=== PATIENT | male | born 1950 | race Caucasian/White ===

== ENCOUNTER 2017-03-06 18:13 | Emergency (ER) | payer MEDICARE ==
[~2017-03-06] VITALS: Ht 177.8 cm; Wt 95.4 kg
[2017-03-06] MEDS ORDERED: LISINOPRIL20 MG PO (18:53)
[2017-03-06] MEDS ORDERED: LOPRESSOR 550 MG/TAB PO (18:54)
[2017-03-06] MEDS ORDERED: LEVOTHYROXIN50 MCG PO (18:54)
[2017-03-06] MEDS ORDERED: LORCET HD 10-321 TAB PO (18:55)
[2017-03-06 19:41] LABS: HEMATOCRIT 50.5 % (39.0-50.0); IMMATURE GRANULOCYTES 0.2 % (0.0-1.0); MEAN CELL VOLUME 92.3 fL CALC (80.0-100.0); MEAN CORPUSCULAR HGB 31.1 pG CALC (26.0-32.0); MEAN CORPUSCULAR HGB CONC 33.7 g/L CALC (32.0-36.0); NEUT# 2.8 thou/uL (1.82-7.42); RED BLOOD COUNT 5.47 mill/uL (4.70-6.10); RED CELL DISTRI WIDTH 14.6 % (11.5-15.5)
[2017-03-06 19:58] LABS: ALBUMIN 4.5 g/dL (3.2-5.0); ALKALINE PHOSPHATASE 110 u/l (38-126); ANION GAP 14 (6-22 (CALC)); BILIRUBIN, TOTAL 0.4 mg/dL (0.0-1.4); BUN 25 mg/dL (8-23); BUN/CREATININE RATIO 21 (12-20 (CALC)); CALCIUM 9.2 mg/dL (8.4-10.2); CARBON DIOXIDE 28 mmol/l (22-30); CHLORIDE 104 mmol/l (95-108); CREATININE 1.2 mg/dL (0.7-1.3); GFR 60 ML/MIN (>=60 (CALC)); GFR FOR AFR.AMER. > 60 ML/MIN (>=60 (CALC)); GLUCOSE 139 mg/dL (82-115); POTASSIUM 3.9 mmol/l (3.5-5.1); SGOT/AST 19 u/l (19-48); SGPT/ALT 19 u/l (11-66); SODIUM 142 mmol/l (137-146); TOTAL PROTEIN 6.5 g/dL (6.3-8.2)
[2017-03-06 21:06] VITALS: BP 175/93
== END 2017-03-06 21:43 | disposition home or self-care (01) ==
LOC: ED 18:13
PROVIDERS: Emergency Medicine
DX: R00.2 Palpitations (principal); I10 Essential (primary) hypertension; F17.290 Nicotine dependence, other tobacco product, uncomplicated; F32.9 Major depressive disorder, single episode, unspecified; N40.0 Benign prostatic hyperplasia without lower urinary tract symptoms; Z85.89 Personal history of malignant neoplasm of other organs and systems

== ENCOUNTER 2018-02-15 01:16 | Observation (INO) | payer MEDICARE ==
[2018-02-15] VITALS (15 sets, daily range): BP systolic 101–226; BP diastolic 63–136
[~2018-02-15] VITALS: Ht 177.8 cm; Wt 98.0 kg
[~2018-02-15 01:16] MED LIST: LEVOTHYROXIN50 MCG PO; LISINOPRIL20 MG PO; LOPRESSOR 550 MG/TAB PO; LORCET HD 10-321 TAB PO
[2018-02-15 01:49] LABS: IMMATURE GRANULOCYTES 0.4 % (0.0-5.0); MEAN CELL VOLUME 91.7 fL CALC (80.0-100.0); MEAN CORPUSCULAR HGB 31.2 pG CALC (26.0-32.0); NEUT# 6.35 thou/uL (1.82-7.42); RED BLOOD COUNT 5.45 mill/uL (4.70-6.10); RED CELL DISTRI WIDTH 14.2 % (11.5-15.5)
[2018-02-15] MEDS ORDERED: NORVASC PO (01:49)
[2018-02-15] MEDS ORDERED: LOSARTAN POT50 MG PO (01:50)
[2018-02-15] MEDS ORDERED: XANAX0.25 MG PO (01:50)
[2018-02-15] MEDS ORDERED: BUDEPRION150 MG PO (01:51)
[2018-02-15] MEDS ORDERED: CLONAZEPAM1 MG PO (01:51)
[2018-02-15 01:59] LABS: ALBUMIN 4.4 g/dL (3.2-5.0); ALKALINE PHOSPHATASE 121 u/l (38-126); ANION GAP 13 (6-22 (CALC)); BILIRUBIN, TOTAL 0.4 mg/dL (0.0-1.4); BUN 30 mg/dL (8-23); BUN/CREATININE RATIO 28 (12-20 (CALC)); CARBON DIOXIDE 26 mmol/l (22-30); CHLORIDE 108 mmol/l (95-108); CREATININE 1.1 mg/dL (0.7-1.3); GFR > 60 ML/MIN (>=60 (CALC)); GFR FOR AFR.AMER. > 60 ML/MIN (>=60 (CALC)); POTASSIUM 4.3 mmol/l (3.5-5.1); SGOT/AST 24 u/l (19-48); SODIUM 142 mmol/l (137-146); TOTAL PROTEIN 7.2 g/dL (6.3-8.2)
[2018-02-15 02:10] LABS: MYOGLOBIN 52 ng/mL (0 - 121)
[2018-02-15 05:17] LABS: URINE BILIRUBIN - DIPSTICK NEGATIVE (NEGATIVE); URINE BLOOD DIPSTICK NEGATIVE (NEGATIVE); URINE COLOR YELLOW; URINE GLUCOSE - DIPSTICK 250 mg/dL (NEGATIVE); URINE KETONE NEGATIVE (NEGATIVE); URINE LEUK ESTERASE NEGATIVE (NEGATIVE); URINE NITRITE - DIPSTICK NEGATIVE (Negative); URINE PH 6.5 (4.5-8.0); URINE PROTEIN - DIPSTICK NEGATIVE (NEG-TRACE); URINE SPECIFIC GRAVITY 1.015; URINE UROBILINOGEN - DIPSTICK 0.2 E.U./dL (0.2)
[2018-02-15 05:29] LABS: URINE CLARITY CLEAR
== END 2018-02-15 22:45 | disposition short-term general hospital (02) ==
LOC: ED 01:16 → ED-I 02:00 → ED 03:26 → ICU 03:27
PROVIDERS: Emergency Medicine; ADMIT Internal Medicine; ATTEND Internal Medicine
DX: I20.9 Angina pectoris, unspecified (principal); I10 Essential (primary) hypertension; J44.9 Chronic obstructive pulmonary disease, unspecified; E03.9 Hypothyroidism, unspecified; E78.5 Hyperlipidemia, unspecified; F41.1 Generalized anxiety disorder; F32.9 Major depressive disorder, single episode, unspecified; G62.9 Polyneuropathy, unspecified; F17.210 Nicotine dependence, cigarettes, uncomplicated; R94.31 Abnormal electrocardiogram [ECG] [EKG]; Z85.89 Personal history of malignant neoplasm of other organs and systems; Z92.3 Personal history of irradiation

== ENCOUNTER → 2018-05-18 | Outpatient (REF) | payer MEDICARE ==
[~2018-05-18] MED LIST changes: +BUDEPRION150 MG PO; +CLONAZEPAM1 MG PO; +LOSARTAN POT50 MG PO; +NORVASC PO; +XANAX0.25 MG PO
[2018-05-18 10:20] LABS: CREATININE 1.5 mg/dL (0.7-1.3); POTASSIUM 4.4 mmol/l (3.5-5.1)
== END | disposition home or self-care (01) ==
LOC: LAB 08:41
PROVIDERS: ATTEND Nurse Practitioner
DX: R94.4 Abnormal results of kidney function studies (principal)

== ENCOUNTER 2019-04-16 16:59 | Observation (INO) | payer MEDICARE ==
[~2019-04-16] VITALS: Ht 172.7 cm; Wt 94.2 kg
--- NOTE | 2019-04-16 17:17 | NUR ---
PT SENT BACK TO WAITING ROOM, ADVISED OF BUSY ER STATUS, INFORMED PT TO NOTIFY STAFF OF ANY SYMPTOM CHANGES. CHARGE NURSE NOTIFIED.
--- NOTE | 2019-04-16 19:40 | NUR ---
PATIENT AMBULATORY TO ROOM 12. UNDRESSED INTO A GOWN. PLACED ON MONITOR. AWAITING MD PENNY.
--- NOTE | 2019-04-16 20:00 | NUR ---
RESTING COMFORTABLY DISCUSSED TREATMENT PLAN
[2019-04-16 20:28] LABS: HEMATOCRIT 53.7 % (39.0-50.0); IMMATURE GRANULOCYTES 0.3 % (0.0-5.0); MEAN CELL VOLUME 89.9 fL CALC (80.0-100.0); MEAN CORPUSCULAR HGB 30.2 pG CALC (26.0-32.0); MEAN CORPUSCULAR HGB CONC 33.5 g/L CALC (32.0-36.0); NEUT# 4.24 thou/uL (1.82-7.42); RED BLOOD COUNT 5.97 mill/uL (4.70-6.10); RED CELL DISTRI WIDTH 15.5 % (11.5-15.5)
[2019-04-16 20:47] LABS: ACT PARTIAL THROMBO TIME 29.6 SECONDS (20.0-32.5); INTERNATIONAL NORMALIZED RATIO 1.1 RATIO (0.7-1.3); PROTHROMBIN TIME 11.2 SECONDS (9.0-12.5)
[2019-04-16 20:49] LABS: ALBUMIN 4.7 g/dL (3.2-5.0); ALKALINE PHOSPHATASE 91 u/l (38-126); ANION GAP 12 (6-22 (CALC)); BUN 21 mg/dL (8-23); BUN/CREATININE RATIO 21 (12-20 (CALC)); CARBON DIOXIDE 28 mmol/l (22-30); CHLORIDE 102 mmol/l (95-108); GFR > 60 ML/MIN (>=60 (CALC)); GFR FOR AFR.AMER. > 60 ML/MIN (>=60 (CALC)); SGOT/AST 31 u/l (19-48); SODIUM 139 mmol/l (137-146); TOTAL PROTEIN 7.8 g/dL (6.3-8.2)
[2019-04-16 20:51] LABS: BILIRUBIN, TOTAL 0.8 mg/dL (0.0-1.4)
--- NOTE | 2019-04-16 21:00 | NUR ---
NO CHANGE IN EXAM.
[2019-04-16 21:23] LABS: URINE BILIRUBIN - DIPSTICK NEGATIVE (NEGATIVE); URINE BLOOD DIPSTICK TRACE-LYSED (NEGATIVE); URINE COLOR YELLOW; URINE GLUCOSE - DIPSTICK NEGATIVE (NEGATIVE); URINE KETONE NEGATIVE (NEGATIVE); URINE LEUK ESTERASE NEGATIVE (NEGATIVE); URINE NITRITE - DIPSTICK NEGATIVE (Negative); URINE PROTEIN - DIPSTICK 30 mg/dL (NEG-TRACE); URINE SPECIFIC GRAVITY 1.025; URINE UROBILINOGEN - DIPSTICK 0.2 E.U./dL (0.2)
[2019-04-16 21:39] LABS: URINE RBC 0-2 RBC/hpf (0-5); URINE SQUAMOUS EPITHELIAL CELL FEW EPI/hpf (0-FEW); URINE WBC 0-2 WBC/hpf (0-5)
--- NOTE | 2019-04-16 22:00 | NUR ---
BP IMPROVED RESTING COMFORTABLY.
--- NOTE | 2019-04-16 23:00 | NUR ---
ADDITIONAL MEDS GIVEN FOR BP CONTROL. COMFORTAABLE
[2019-04-17] VITALS (15 sets, daily range): BP systolic 102–198; BP diastolic 60–102
--- NOTE | 2019-04-17 | NUR ---
INITIATED MED FOR BP. EXAM UNCHANGED.
[2019-04-17] MEDS ORDERED: CLOPIDOGREL75 MG PO (00:24)
[2019-04-17] MEDS ORDERED: SM ASA CHLD81 MG PO (00:25)
--- NOTE | 2019-04-17 01:15 | NUR ---
Admission Note Report Given to: FARIHA ARAUJO Transported by: Wheelchair X Stretcher Transported with: X Nurse Transporter X Patent IV O2 X Pmo Lead Location: X ICU [facility]
--- NOTE | 2019-04-17 01:23 | NUR ---
TRANSPORTED TO ROOM.
--- NOTE | 2019-04-17 01:25 | NUR ---
PT. ARRIVES FROM ER VIA STRETCHER. ALERT AND ORIENTED X 3. SKIN WARM AND DRY. AFEBRILE AT THIS TIME. PLACED ON MONITOR. SINUS IN THE 60-70'S WITH FEQUENT PVC'S. PT. REPORTS COMPLAINT OF PAIN ALL OVER, MAINLY TO HIS HEAD AND NECK. ON ARRIVAL, PT. 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 PT. AMBULATORY FROM STRETCHER TO ICU BED IN NO DISTRESS. ARRIVES WITH CARDENE DRIP BUT NOT IN USE AT THIS TIME. ON ARRIVAL BP BP148/92. PT. STATES HIS NORMAL BP IS 160/100. PLACED ON STANDING SCALE AND PT. STABLE. REFUSES TO REMOVE JEANS AT THIS TIME. REQUESING HYDROCODONE AND XANAX ON ARRIVAL TO UNIT THESE ARE HOME MEDS FOR HIM. STATES LAST BM WAS 2 DAYS AGO AND THAT IS NORMAL FOR HIM.
--- NOTE | 2019-04-17 02:28 | NUR ---
FOR SOME REASION PATIENT IS CHOOSING NOT TO LAY IN THE BED AND IS WALKING AROUND THE ICU ROOM. REMAINS IN NO DISTRESS. LOOKING OUT THE WINDOW. CALL LIGHT WOULD BE IN REACH IF THE PATIENT WAS IN BED.
--- NOTE | 2019-04-17 03:45 | NUR ---
PT. REMAINS SITTING IN CHAIR AT BEDSIDE. REMAINS IN NO DISTRESS. BP NOW LOW AT 90/57. CARDENE DRIP HAS NOT BEEN RESTARTED SINCE ARRIVAL FROM ER.
--- NOTE | 2019-04-17 04:55 | NUR ---
PT. LAYING IN BED RESTING ON LT. SIDE IN NO DISTRESS. RESPS EVEN AND UNLABORED. SKIN REMAINS WARM AND DRY. BP STABLE AT 114/79. CALL LIGHT WITHIN REACH.
--- NOTE | 2019-04-17 06:39 | NUR ---
PT. CONTINUES TO REST ON LT. SIDE IN NO DISTRESS. RESPS REMAIN EVEN AND UNLABORED. BP REMAINS STABLE. CALL LIGHT WITHIN REACH. WILL CONTINUE TO MONITOR.
--- NOTE | 2019-04-17 09:20 | NUR ---
DR LOJA @BEDSIDE, ASSESSING PT. PT TELLING STORIES, C/O POOR APPETITE, & FEELS LIKE HE'S "GULPING AIR". REVIEWING TEST RESULTS & MEDICATIONS. PT BREATHING EVEN/UNLABORED, 97% ON RA, SPEAKS LONG W/OUT DIFFICULTY. PT UP, WALKING AROUND ROOM, REMINDED PT OF FALL PRECAUTIONS.
--- NOTE | 2019-04-17 10:33 | NUR ---
PT CONTINUES TO WALK AROUND ROOM & STARE OUT WINDOWN. PT REMINDED OF FALL PRECAUTIONS- R/T ON MONITORS.
--- NOTE | 2019-04-17 10:44 | NUR ---
TEETEE NUGENT, @BEDSIDE FOR ASSESSMENT. LAB @BEDSIDE FOR TROP DRAW.
--- NOTE | 2019-04-17 12:03 | NUR ---
ALEJANDRO MOSLEY, @BEDSIDE WITH PT
[2019-04-17] MEDS ORDERED: LIPITOR40 M1 PO (12:23)
--- NOTE | 2019-04-17 14:41 | NUR ---
PT SITTING ON SIDE OF BED, TALKING TO SON @BEDSIDE. PT AWARE OF NEED FOR HOME MED GUANFACIN TO BE BROUGHT INTO ICU. CALLBELL W/IN REACH. PT MEDICATED FOR CHRONIC PAIN.
--- NOTE | 2019-04-17 14:56 | NUR ---
CARDIAC LEADS CHANGED BUT TELE STILL READING "V FAIL".
--- NOTE | 2019-04-17 16:23 | NUR ---
PT REFUSED BATH & LINEN CHANGE, BRUSHED OWN TEETH. BROUGHT IN HOME MED GAUNGACIN, SENT TO PHARMACY FOR LABEL.
--- NOTE | 2019-04-17 18:00 | NUR ---
DR LOJA @BEDSIDE DISCUSSING POC WITH PT.
[2019-04-17] MEDS ORDERED: GUANFACINE1 MG PO (18:02)
--- NOTE | 2019-04-17 18:30 | NUR ---
PT EDUCATED ON D/C INSTRUCTIONS; INCLUDING DOSAGE CHANGE & IMPORTANCE OF F/UP CARE.
--- NOTE | 2019-04-17 18:46 | NUR ---
PT REFUSED WC, AMBULATED OUT OF ICU WITH STEADY GAIT TOWARDS ER WHERE HIS FAMILY WILL PICK HIM UP. PT HUGGED THIS RN & THANKED ME FOR THE GREAT CARE.
== END 2019-04-17 18:48 | disposition home or self-care (01) ==
LOC: ED 16:59 → ED-I 21:56 → ED 22:05 → ICU 22:06 → MS2 22:06 → ICU 04-17 00:02
PROVIDERS: ADMIT Internal Medicine; ATTEND Internal Medicine
DX: I16.0 Hypertensive urgency (principal); I11.9 Hypertensive heart disease without heart failure; I25.119 Atherosclerotic heart disease of native coronary artery with unspecified angina pectoris; E78.5 Hyperlipidemia, unspecified; F41.9 Anxiety disorder, unspecified; Z95.5 Presence of coronary angioplasty implant and graft; Z85.89 Personal history of malignant neoplasm of other organs and systems; Z79.02 Long term (current) use of antithrombotics/antiplatelets; Z79.82 Long term (current) use of aspirin; Z87.891 Personal history of nicotine dependence

== ENCOUNTER 2021-09-23 21:46 | Inpatient (IN) | payer MEDICARE ==
[~2021-09-23] VITALS: Ht 172.7 cm; Wt 89.5 kg
[~2021-09-23 21:46] MED LIST changes: +CLOPIDOGREL75 MG PO; +GUANFACINE2 MG PO; +LEVOTHYROXIN125 MC1 PO; -LEVOTHYROXIN50 MCG PO; +LIPITOR40 M1 PO; +SM ASA CHLD81 MG PO
--- NOTE | 2021-09-23 22:00 | NUR ---
PT TAKEN TO ROOM 12 FORM LOBBY VIA WHEELCHAIR, NAD NOTED.
[2021-09-23 22:22] LABS: HEMATOCRIT 49.8 % (39.0-50.0); HEMOGLOBIN 16.3 g/dl (14.0-18.0); IMMATURE GRANULOCYTES 0.2 % (0.0-5.0); MEAN CELL VOLUME 91.4 fL CALC (80.0-100.0); MEAN CORPUSCULAR HGB 29.9 pG CALC (26.0-32.0); MEAN CORPUSCULAR HGB CONC 32.7 g/dL CAL (32.0-36.0); NEUT# 4.39 thou/uL (1.82-7.42); RED BLOOD COUNT 5.45 mill/uL (4.70-6.10); RED CELL DISTRI WIDTH 15.2 % (11.5-15.5)
[2021-09-23 22:35] LABS: ALBUMIN 4.5 g/dL (3.2-5.0); ALKALINE PHOSPHATASE 113 u/l (38-126); AMYLASE 69 u/l (30-110); ANION GAP 12 (6-22 (CALC)); BILIRUBIN, TOTAL 0.3 mg/dL (0.0-1.4); BUN 31 mg/dL (8-23); BUN/CREATININE RATIO 23 (12-20 (CALC)); CARBON DIOXIDE 26 mmol/l (22-30); CHLORIDE 104 mmol/l (95-108); CREATININE 1.3 mg/dL (0.7-1.3); GFR FOR AFR.AMER. > 60 ML/MIN (>=60 (CALC)); GFR OTHER RACES 54 ML/MIN (>=60 (CALC)); LIPASE 52 u/l (23-300); POTASSIUM 4.2 mmol/l (3.5-5.1); SGOT/AST 21 u/l (19-48); SODIUM 137 mmol/l (137-146); TOTAL PROTEIN 7.3 g/dL (6.3-8.2)
[2021-09-23 22:38] LABS: D-DIMER 0.61 mg/L (0.19-0.60)
[2021-09-23 22:46] LABS: ACT PARTIAL THROMBO TIME 28.6 SECONDS (20.0-32.5); INTERNATIONAL NORMALIZED RATIO 0.9 RATIO (0.7-1.3); MYOGLOBIN 60 ng/mL (0 - 121); PROTHROMBIN TIME 9.9 SECONDS (9.0-12.5)
--- NOTE | 2021-09-23 23:34 | NUR ---
W/P/D SKIN SR NO ECTOPY PAIN IS RESOLVING PT FEELS BETTER
[2021-09-24] VITALS (22 sets, daily range): BP systolic 130–230; BP diastolic 76–125
--- NOTE | 2021-09-24 00:01 | NUR ---
W/P/D SKIN PT TREATED FOR ELEV BP STATES HIS PAIN HAS RESOLVED
--- NOTE | 2021-09-24 00:25 | NUR ---
PT REPORT TO NURSE GRIFFIN PT TRANSPORTED TO MS RM 271 VIA TELE WC IN IMPROVED STABLE CONDITION
--- NOTE | 2021-09-24 00:30 | NUR ---
PATIENT ARRIVED FROM ER VIA WHEELCHAIR. AOX3. PATIENT C/O INCREASING CHEST PAIN RATED 9/10 ON PAIN SCALE. BP ELEVATED 187/95. DR. KIM NOTIFIED. FALL PRECAUTIONS INITIATED; PATIENT EDUCATED ON FALL PRECAUTIONS AND AND CALL GOMEZ USE. PATIENT STATES UNDERSTANDING.
--- NOTE | 2021-09-24 01:10 | NUR ---
ORDERS PLACED BY DR. KIM FOR NORCO AND PEPCID IN RESPONSE TO CHEST PAIN. MEDICATIONS ADMINISTERED ORDERED. BP DECREASED TO 158/86. TELEMONITORING PER ED.
--- NOTE | 2021-09-24 04:32 | NUR ---
PATIENT RESTING IN BED. PATIENT STATES THAT PAIN IS NO LONGER PRESENT BUT STILL HAS SOME CHEST DISCOMFORT HE DESCRIBES HAS PRESSURE. NO DISTRESS NOTED. FALL PRECAUTIONS AND CALL GOMEZ IN PLACE.
[2021-09-24 05:19] LABS: ANION GAP 9 (6-22 (CALC)); BUN 29 mg/dL (8-23); BUN/CREATININE RATIO 24 (12-20 (CALC)); CARBON DIOXIDE 24 mmol/l (22-30); CHLORIDE 107 mmol/l (95-108); CREATININE 1.2 mg/dL (0.7-1.3); GFR FOR AFR.AMER. > 60 ML/MIN (>=60 (CALC)); GFR OTHER RACES 60 ML/MIN (>=60 (CALC)); POTASSIUM 4.1 mmol/l (3.5-5.1); SODIUM 137 mmol/l (137-146)
[2021-09-24 05:37] LABS: HEMATOCRIT 46.2 % (39.0-50.0); HEMOGLOBIN 15.1 g/dl (14.0-18.0); MEAN CELL VOLUME 91.3 fL CALC (80.0-100.0); MEAN CORPUSCULAR HGB 29.8 pG CALC (26.0-32.0); MEAN CORPUSCULAR HGB CONC 32.7 g/dL CAL (32.0-36.0); RED BLOOD COUNT 5.06 mill/uL (4.70-6.10); RED CELL DISTRI WIDTH 15.3 % (11.5-15.5)
[2021-09-24] MEDS ORDERED: BYSTOLIC10 MG PO (06:44)
[2021-09-24] MEDS ORDERED: AMLODIPINE BESY10 MG PO (06:46)
[2021-09-24] MEDS ORDERED: FUROSEMIDE20 MG PO (06:47)
--- NOTE | 2021-09-24 07:00 | NUR ---
RECIEVED REPORT FROM XIMENA, NR
--- NOTE | 2021-09-24 08:14 | NUR ---
PT RESTING IN SEMI FOWLERS POSITION.PT A/OX3.RESPIRATIONS EVEN AND UNLABORED ON ROOM AIR. LUNG SOUNDS DIMINISHED THROUGHOUT. HEART RHYTHM NORMAL WITH TELE IN PLACE, SB PER ER MONITORING. #20G LAC FLUSHED, SITE PATENT. SKIN INTACT. PT DENIES OF ANY PAINS OR DISCOMFORTS AT THIS TIME. ALL SAFTEY PRECAUTIONS ARE IN PLACE WITH CALL LIGHT IN REACH.
--- NOTE | 2021-09-24 08:34 | NUR ---
CRITICAL TROPONIN RESULTING IN 0.557. PT REMAINS ASYMPTOMATIC. PT DENIES OF ANY CHEST PAIN. TEETEE ROSADO INFORMED. REPEAT SERIAL TROPONIN TO BE ORDER. ALL SAFTEY PRECAUTIONS IN PLACE WITH CALL LIGHT IN REACH
--- NOTE | 2021-09-24 08:40 | NUR ---
STEMI PROTOCAL IN PLACE. #20G RAC STARTED. WEIGHT OF PT RESULTING IN 88.6. VSS. PT CONTINUES TO DENY ANY CHEST PAIN.TELE MONITORING REMAINS IN PLACE. PT EDUCATED ON POC BY DORITA URBAN. PT VERBLAIZED UNDERSTANDING.
--- NOTE | 2021-09-24 09:15 | NUR ---
REORT GIVEN TO FARIHA WARD
[2021-09-24] MEDS ORDERED: [UNRECOGNIZED DRUG - OTHER] EX (09:16)
[2021-09-24] MEDS ORDERED: TAMSULOSIN HCL0.4 MG PO (09:21)
[2021-09-24] MEDS ORDERED: NITROGLYCER0.4 MG/H1 PO (09:30)
[2021-09-24] MEDS ORDERED: TYLENOL500 MG PO (09:32)
[2021-09-24] MEDS ORDERED: AMOX/K CLAV875 M1 PO (09:36)
[2021-09-24] MEDS ORDERED: GABAPENTIN100 MG PO (09:39)
[2021-09-24] MEDS ORDERED: METHYLPREDNISOLO4 M2 PO (09:43)
--- NOTE | 2021-09-24 10:14 | NUR ---
pt ambulating in room, back to bed to begin frequent monitoring of vs, c/o pain in neck which is chronic but denies CP at this time, he is on RA with no distress or SOB, PO meds given and heparin gtt initiated per protocol including 5000 unit bolus, will recheck PTT at 1600, pt also pre medicated for iodine allergy prior to CTA, he is hypertensive and somewhat agitated with the testing and monitoring, SB on monitor
--- NOTE | 2021-09-24 11:25 | NUR ---
pt back from CTA, he tranferred well in WC, at bedside upon return to his room, questions answered and POC explained, awaiting radiology report at this time
--- NOTE | 2021-09-24 12:10 | NUR ---
result of CTA and critical troponin given to Dr Sanford, case management to call for transfer arraingements
--- NOTE | 2021-09-24 14:54 | NUR ---
continues at bedside, pt resting with c/o only mild C/P which he states is resolving, he remains on RA with HR upper 50's to low 60's, BP better controlled at this time, currently awaiting bed assignment
--- NOTE | 2021-09-24 17:05 | NUR ---
PT RESTING, LORTAB GIVEN FOR C/O NECK PAIN, CONTINUE TO AWAIT BED ASIGNMENT FOR TRANSFER
--- NOTE | 2021-09-24 17:48 | NUR ---
RECEIVED ROOM FOR PT, [address] [facility] WAS CALLED @ [phone] FOR TRANSPORT, ETA 30 MINUTES
--- NOTE | 2021-09-24 18:06 | NUR ---
Diego FRIED called at [facility] and report was given, awaiting PTT result and transport at this time
--- NOTE | 2021-09-24 18:26 | NUR ---
pt AO, transferred via [place], heparin gtt titrated per protocol just prior to departure
--- NOTE | 2021-09-24 18:39 | NUR ---
[facility] called with update on PTT and change in gtt rate as well as critical troponin of 0.602
== END 2021-09-24 18:24 | disposition short-term general hospital (02) | DRG 282 ==
LOC: ED 21:46 → ED-I 22:58 → ED 23:11 → MS2 23:12
PROVIDERS: Family Medicine; ADMIT Hospitalist; ATTEND Hospitalist
DX: I21.4 Non-ST elevation (NSTEMI) myocardial infarction (principal); I16.0 Hypertensive urgency; I11.9 Hypertensive heart disease without heart failure; I25.10 Atherosclerotic heart disease of native coronary artery without angina pectoris; J44.9 Chronic obstructive pulmonary disease, unspecified; F41.9 Anxiety disorder, unspecified; F32.A Depression, unspecified; E03.9 Hypothyroidism, unspecified; E78.5 Hyperlipidemia, unspecified; K21.9 Gastro-esophageal reflux disease without esophagitis; I87.2 Venous insufficiency (chronic) (peripheral); Z95.5 Presence of coronary angioplasty implant and graft; Z79.02 Long term (current) use of antithrombotics/antiplatelets; Z79.82 Long term (current) use of aspirin; Z85.01 Personal history of malignant neoplasm of esophagus; Z87.891 Personal history of nicotine dependence; Z20.822 Contact with and (suspected) exposure to COVID-19; E11.65 Type 2 diabetes mellitus with hyperglycemia; N18.30 Chronic kidney disease, stage 3 unspecified; Z12.5 Encounter for screening for malignant neoplasm of prostate
CPT/HCPCS: J1644; Q9967; S0164

== ENCOUNTER 2022-11-26 23:15 | Emergency (ER) | payer MEDICARE ==
[~2022-11-26] VITALS: Ht 172.7 cm; Wt 89.0 kg
[~2022-11-26 23:15] MED LIST changes: +AMLODIPINE BESY10 MG PO; +AMOX/K CLAV875 M1 PO; +BYSTOLIC10 MG PO; +FUROSEMIDE20 MG PO; +GABAPENTIN100 MG PO; +METHYLPREDNISOLO4 M2 PO; +NITROGLYCER0.4 MG/H1 PO; +TAMSULOSIN HCL0.4 MG PO; +TYLENOL500 MG PO; +[UNRECOGNIZED DRUG - OTHER] EX
[2022-11-26 23:27] VITALS: BP 242/134
[2022-11-26 23:31] VITALS: BP 188/115
[2022-11-26 23:46] VITALS: BP 202/105
[2022-11-27] MEDS ORDERED: ATORVASTATIN CA40 MG PO (00:47)
[2022-11-27] MEDS ORDERED: LOSARTAN POTASS50 MG PO (00:47)
[2022-11-27 01:36] VITALS: BP 187/92
[2022-11-27 01:46] VITALS: BP 182/91
[2022-11-27 02:01] VITALS: BP 178/92
[2022-11-27 02:15] VITALS: BP 178/92
== END 2022-11-27 02:15 | disposition home or self-care (01) ==
LOC: ED 23:15
DX: S00.83XA Contusion of other part of head, initial encounter (principal); S60.222A Contusion of left hand, initial encounter; S80.01XA Contusion of right knee, initial encounter; I10 Essential (primary) hypertension; J44.9 Chronic obstructive pulmonary disease, unspecified; E03.9 Hypothyroidism, unspecified; F41.9 Anxiety disorder, unspecified; F32.A Depression, unspecified; W18.39XA Other fall on same level, initial encounter; Y93.89 Activity, other specified; Y92.009 Unspecified place in unspecified non-institutional (private) residence as the place of occurrence of the external cause